=== PATIENT | male | born 1945 | race Caucasian/White ===

== ENCOUNTER 2017-04-10 11:12 | Emergency (ER) | payer OTHER ==
[2017-04-10 11:32] VITALS: RESP 16; TEMP 98.4
--- NOTE | 2017-04-10 11:54 | EDPHY ---
H & P Time Seen by Provider: 04/10/17 11:34 HPI/ROS: 71-year-old male presents complaining of left ankle swelling that began possibly last night and was much more notable this morning he denies any recent injuries. For several weeks he has been on a cross[place]country driving trip and [place] in [place] of days. Not currently on blood thinners other than aspirin no prior history of DVT. Review of systems As per HPI General no fever no chills no weakness HEENT no eye pain no eye discharge. No eye redness, no sore throat Respiratory no cough, no shortness of breath Cardiac no chest pain, no peripheral edema GI no abdominal pain, no diarrhea, no constipation, no nausea, no vomiting no flank pain, no hematuria, no dysuria Musculoskeletal no myalgias, positive joint pain Heme no easy bruising, no easy bleeding Endo no polyuria, no polydipsia Skin no rashes, no pruritus Neuro no syncope, no dizziness, no headaches Psych is no suicidal ideation, no homicidal ideation Past Medical/Surgical History: Hypertension Social History: Denies alcohol or drug use Smoking Status: Former smoker Physical Exam: 71-year-old male alert and oriented no acute distress nontoxic appearance afebrile HEENT atraumatic normocephalic, extraocular muscles intact, anicteric Oropharynx negative for erythema negative exudate, tolerating her own secretions Neck supple no meningismus Lungs clear to auscultation bilaterally Heart regular rate and rhythm without murmur rub or gallop Abdomen nondistended normoactive bowel sounds soft nontender Back no CVA tenderness, no step-offs, no spinal tenderness Extremities no cyanosis clubbing or edema With the exception of left ankle-positive bimalleolar edema tenderness to palpation at lateral malleolus Good pulses both DP and PT, good capillary refill, full range of motion of digits full range of motion at knee No erythema, no increased warmth Neuro alert and oriented, no focal deficits Constitutional: Initial Vital Signs Temperature (C) 36.9 C 04/10/17 11:25 Heart Rate 89 04/10/17 11:25 Respiratory Rate 16 04/10/17 11:25 Blood Pressure 154/98 H 04/10/17 11:25 O2 Sat (%) 93 04/10/17 11:25 O2 Delivery Mode Room Air Allergies/Adverse Reactions: No Known Allergies Allergy (Unverified 04/10/17 11:27) Home Medications: Medication Instructions Recorded Aspirin 325 mg (*) 04/10/17 Lisinopril 04/10/17 Medical Decision Making - Diagnostics Imaging Results: Imaging Impressions Ankle X-Ray 04/10/17 11:49 Impression: 1. No evidence of gout arthropathy. 2. Minimal age-appropriate degenerative changes. Extremity Venous Study 04/10/17 12:58 Impression: No evidence of deep vein thrombosis. Findings discussed with Emerald Fletcher MD 04/10/2017 at 14:05. ED Course/Re-evaluation: Patient seen and evaluated for new onset left ankle swelling with no recollection of an injury or trauma. The patient has been traveling and quite dizzy over the last several weeks. X-ray Negative for gouty changes Mild soft tissue swelling No fractures Labs CBC, erythrocyte sedimentation rate within normal limits D-dimer elevated BMP normal Ultrasound to rule out DVT Negative for DVT negative for Jenkins cyst Impression Left ankle pain and edema likely left ankle sprain despite not remembering trauma Plan CAM boot, crutches Follow up with PCP upon return to [place], [place]. - Data Points Laboratory Results: Laboratory Results 04/10/17 12:18 04/10/17 12:18 04/10/17 04/10/17 04/10/17 12:18 12:18 12:18 WBC 7.21 10^3/uL 10^3/uL (3.80-9.50) RBC 4.74 10^6/uL 10^6/uL (4.40-6.38) Hgb 16.1 g/dL g/dL (13.7-17.5) Hct 45.2 % % (40.0-51.0) MCV 95.4 fL fL (81.5-99.8) MCH 34.0 pg pg (27.9-34.1) MCHC 35.6 g/dL g/dL (32.4-36.7) RDW 11.9 % % (11.5-15.2) Plt Count 140 10^3/uL L 10^3/uL (150-400) MPV 10.5 fL fL (8.7-11.7) Neut % (Auto) 70.8 % % (39.3-74.2) Lymph % (Auto) 16.6 % % (15.0-45.0) Sebastian % (Auto) 11.1 % % (4.5-13.0) Eos % (Auto) 0.6 % % (0.6-7.6) Baso % (Auto) 0.6 % % (0.3-1.7) Nucleat RBC Rel Count 0.0 % % (0.0-0.2) Absolute Neuts (auto) 5.11 10^3/uL 10^3/uL (1.70-6.50) Absolute Lymphs (auto) 1.20 10^3/uL 10^3/uL (1.00-3.00) Absolute Monos (auto) 0.80 10^3/uL 10^3/uL (0.30-0.80) Absolute Eos (auto) 0.04 10^3/uL 10^3/uL (0.03-0.40) Absolute Basos (auto) 0.04 10^3/uL 10^3/uL (0.02-0.10) Absolute Nucleated RBC 0.00 10^3/uL 10^3/uL (0-0.01) Immature Gran % 0.3 % % (0.0-1.1) Immature Gran # 0.02 10^3/uL 10^3/uL (0.00-0.10) ESR 8 MM/HR MM/HR (0-20) D-Dimer 3.17 ug/mLFEU H ug/mLFEU (0.00-0.50) Sodium 140 mEq/L mEq/L (134-144) Potassium 4.1 mEq/L mEq/L (3.5-5.2) Chloride 103 mEq/L mEq/L (97-110) Carbon Dioxide 25 mEq/l mEq/l (22-31) Anion Gap 12 mEq/L mEq/L (8-16) BUN 18 mg/dL mg/dL (7-23) Creatinine 1.1 mg/dL mg/dL (0.7-1.3) Estimated GFR > 60 Glucose 106 mg/dL H mg/dL (70-100) Calcium 9.4 mg/dL mg/dL (8.5-10.4) Departure - Departure Disposition: Home, Routine, Self-Care Clinical Impression: Left ankle pain, Edema of left ankle Condition: Good Instructions: Ankle Sprain (ED) Referrals: ADAMS ANDREW [Other] - As per Instructions
[2017-04-10 12:26] LABS: % IMMATURE GRANULYOCYTES 0.3 % (0.0-1.1); ABSOLUTE IMMATURE GRANULOCYTES 0.02 10^3/uL (0.00-0.10); ADD DIFF? NO; ADD MORPH? NO; ADD SCAN? NO; ATYPICAL LYMPHOCYTE FLAG 10 (0-99); FRAGMENT RBC FLAG 0 (0-99); HEMATOCRIT 45.2 % (40.0-51.0); HEMOGLOBIN 16.1 g/dL (13.7-17.5); LEFT SHIFT FLG 0 (0-99); LIPEMIA HEMOLYSIS FLAG 90 (0-99); MEAN CELL HEMOGLOBIN CONCENTR. 35.6 g/dL (32.4-36.7); MEAN CELL VOLUME 95.4 fL (81.5-99.8); MEAN PLATELET VOLUME 10.5 fL (8.7-11.7); PLATELET CLUMPS FLAG 10 (0-99); PLATELET COUNT 140 10^3/uL (150-400); RED BLOOD CELL COUNT 4.74 10^6/uL (4.40-6.38); RED CELL DISTRIBUTION WIDTH 11.9 % (11.5-15.2)
[2017-04-10 12:39] LABS: ANION GAP 12 mEq/L (8-16); CALCIUM 9.4 mg/dL (8.5-10.4); CARBON DIOXIDE 25 mEq/l (22-31); CHLORIDE 103 mEq/L (97-110); CREATININE 1.1 mg/dL (0.7-1.3); GLOMERULAR FILTRATION RATE > 60; GLUCOSE 106 mg/dL (70-100); POTASSIUM 4.1 mEq/L (3.5-5.2); SODIUM 140 mEq/L (134-144)
[2017-04-10 12:47] LABS: SEDIMENTATION RATE 8 MM/HR (0-20)
[2017-04-10 14:59] VITALS: BP 144/95; PULSE 83; O2SAT 95
== END 2017-04-10 14:40 | disposition home or self-care (01) ==
LOC: EDBD → CED 11:12
DX: M25.472 Effusion, left ankle (principal); I10 Essential (primary) hypertension; Z79.82 Long term (current) use of aspirin; Z87.891 Personal history of nicotine dependence
CPT/HCPCS: 73610; 93971; 99285; L4386; 80048-PO; 85025-PO; 85378-PO; 85652-PO